=== PATIENT | female | born 1965 | race Hispanic/Latino ===

== ENCOUNTER 2021-11-03 09:02 | Day surgery (SDC) | payer BC ==
[~2021-11-03] VITALS: Ht 154.9 cm; Wt 74.1 kg
[~2021-11-03 09:02] MED LIST: LOW DOSE ASPIRI81 MG PO; METFORMIN HCL500 MG PO; METOPROLOL TAR100 MG PO
--- NOTE | 2021-11-03 11:22 | NUR ---
11/03/21 Augie2 Zofia Solis 1117-PATIENT ARRIVED TO PACU ON 2L NC RR EVEN. PATIENT LAYING LEFT LATERAL ABDOMEN SOFT. REACTIVE TO VERBAL STIMULI OPENING EYES SPEAKS MINIMAL KYRGYZ. IVF INFUSING. EASILY DOZES BACK TO SLEEP.
--- NOTE | 2021-11-04 06:23 | OR ---
[facility] [address] [place], [place] [address] Signed DATE OF OPERATION: 11/03/2021 SURGEON: Rigoberto Gonsalez MD PREOPERATIVE DIAGNOSIS: 1. Proximal esophageal dysphagia. 2. Halitosis. 3. Screening. POSTOPERATIVE DIAGNOSES: 1. Mild diffuse punctate hemorrhagic gastritis. 2. 4 mm polyp at 4 cm. 3. Minimal internal hemorrhoids. PROCEDURES: 1. Esophagogastroduodenoscopy with CLOtest and biopsy of the antrum. 2. Colonoscopy with hot biopsy. ESTIMATED BLOOD LOSS: None. INDICATIONS: Donna is a 55-year-old speaking female who came to the office with her . We also had our actuarial science professor in the room. Donna was asked to see me for her initial screening colonoscopy. She has no lower GI complaints. There is no family history of colon cancer or polyps. However, she is concerned about a sense of dysphagia or swelling in the back of her mouth. She talks about halitosis. In that regard her primary care provider also wanted her to have an upper endoscopy. If the upper endoscopy is negative, she should see an ear, nose, and throat surgeon to evaluate her tonsils and so forth. In the office, I gave them brochures on upper and lower endoscopy written in [place]. We went through them page by page. They understand the nature of the two tests. There is risk including, but not limited to gas bloating, crampy abdominal pain, bleeding, perforation requiring surgery, and missed diagnosis. We also reviewed the written instructions for the bowel prep written in [place]. She will hold her aspirin three days prior to the procedure. We also reviewed the need for IV conscious sedation. She had expressed understanding and wished to proceed. PROCEDURE IN DETAIL: Donna was taken into our endoscopy suite and placed in the supine semi-recumbent position. She was given a total of 8 mg of Versed and 150 mcg of fentanyl to cover both Electronically Signed By: RIGOBERTO GONSALEZ MD 11/04/21 0623 PATIENT NAME: DONNA HERRERA OPERATIVE REPORT DATE OF : 65 REPORT #: [id number] PHYSICIAN: RIGOBERTO GONSALEZ MD PCP: MAYCO WHITEHEAD REPORT IS CONFIDENTIAL AND NOT TO BE RELEASED WITHOUT AUTHORIZATION [facility] [address] [place], [place] [address] Signed cases. A bite block was utilized for the upper endoscopy. The adult gastroscope was introduced and advanced out into the third portion of the duodenum without difficulty. The duodenum and pyloric channel were unremarkable. The stomach showed mild diffuse punctate hemorrhagic inflammatory changes. We took a biopsy of the antrum for CLOtest as well as pathologic review. Upon retroflexion of scope, I could not appreciate a hiatal hernia. Scope was withdrawn up through the area of the GE junction, which was compliant without stricture. There was no gastric or esophageal varices. Very little if any disruption to the Z-line. No Silverman's mucosa. No distal esophagitis. The middle and upper esophagus were unremarkable. After this, the gas was suctioned out, the gastroscope removed. Donna tolerated the upper endoscopy quite well. Donna was then rotated into the left lateral decubitus position. She was maintained on IV sedation with the Versed and fentanyl. A digital rectal exam was performed. She has good sphincter tone. Not much in the way of any external hemorrhoids. The adult colonoscope was introduced and advanced all the way around into the cecum under direct visualization of camera without difficulty. It did take some extra sedation to keep Donna comfortable. Fortunately her prep was good. We could easily see the appendiceal orifice and ileocecal valve. The scope was then slowly withdrawn. We took pictures throughout for photodocumentation. There were no polyps in the colon. There was no diverticulosis. In the rectum she had just a tiny 4 mm polyp above the anal canal at about 4 cm. It was easily removed with the help of hot biopsy forceps. Upon retroflexion of scope we could see minimal circumferential internal hemorrhoid columns. After this, the gas was suctioned out. The colonoscope removed. Donna tolerated the lower endoscopy quite well. RECOMMENDATIONS: I will see Donna back in my office in 7 to 14 days to review her results. She might try an H2 mandeep or proton-pump inhibitor through her primary care provider to see if that improves her sense of dysphagia. If it does not, she would need to see an Ear, Nose, and Throat surgeon. Rigoberto Gonsalez MD ALB/MODL /[id number] Electronically Signed By: RIGOBERTO GONSALEZ MD 11/04/21 0623 PATIENT NAME: DONNA HERRERA OPERATIVE REPORT DATE OF : 65 REPORT #: [id number] PHYSICIAN: RIGOBERTO GONSALEZ MD PCP: MAYCO WHITEHEAD REPORT IS CONFIDENTIAL AND NOT TO BE RELEASED WITHOUT AUTHORIZATION [facility] [address] [place], [place] [address] Signed cc: OPAL Hill MD Copies: RIGOBERTO GONSALEZ MD ~ Electronically Signed By: RIGOBERTO GONSALEZ MD 11/04/21622 PATIENT NAME: DONNA HERRERA OPERATIVE REPORT DATE OF : 65 REPORT #: [id number] PHYSICIAN: RIGOBERTO GONSALEZ MD PCP: MAYCO WHITEHEAD REPORT IS CONFIDENTIAL AND NOT TO BE RELEASED WITHOUT AUTHORIZATION
--- NOTE | 2021-11-07 18:19 | PATH ---
[facility] [address] [place], [place] [address] Signed SPECIMEN(S): A ANTRUM BIOPSY SPECIMEN(S): B POLYP AT 4 CM SPECIMEN SOURCE: A. ANTRUM BIOPSY B. POLYP AT 4 CM CLINICAL HISTORY: Esophageal dysphagia FINAL PATHOLOGIC DIAGNOSIS: A. Stomach, antrum, biopsy: - No significant histopathologic alterations. B. Polyp, 4 cm, polypectomy: - Mucosal xanthoma. - No evidence of neoplasia. COMMENT: Regarding specimen A, the sections through the gastric biopsies show fragments of histologically unremarkable antral mucosa. There is no evidence of acute or chronic inflammation. There is no evidence of H. pylori, intestinal metaplasia, abnormal infiltrates or neoplasia. Regarding specimen B, mucosal xanthomas consist of collections of lipid filled macrophages in the lamina propria. They often also contain mucin. These are nonspecific markers of old injury. There is no evidence of acute or chronic inflammation at this time. There is no evidence of microscopic colitis. These lesions sometimes present endoscopically as small polyps. TWK:[id number]:C2NR MICROSCOPIC EXAMINATION: Histologic sections of all submitted blocks are examined by light microscopy. These findings, together with the gross examination, support the pathologic diagnosis. GROSS DESCRIPTION: Two specimens are received in two containers labeled with "MM". A. The specimen, labeled "MM, biopsy, antrum," is received in formalin and consists of one fragment of pink-arellano tissue (0.3 cm in greatest dimension). The specimen is submitted entirely in cassette PATIENT NAME: JAVIERDONNA PATHOLOGY DATE OF : 65 REPORT #: [id number] PHYSICIAN: CHRISTIANO RAMOS PCP: MAYCO WHITEHEAD REPORT IS CONFIDENTIAL AND NOT TO BE RELEASED WITHOUT AUTHORIZATION [facility] [address] [place], [place] [address] Signed A1. B. The specimen, labeled "MM, polyp at 4 cm," is received in formalin and consists of 2 fragments of pink-arellano tissue (0.2 cm in greatest dimension). The specimen is submitted entirely in cassette B1. AC (under the direct supervision of a pathologist) The Gross Description was prepared using a voice recognition system. The report was reviewed for accuracy; however, sound-alike word errors, addition and/or deletions may occur. If there is any question about this report, please contact Client Services. PERFORMING LABORATORY: The technical component was performed by [facility], [address] [place] [id number] (CLIA# [id number]). The professional interpretation was performed by [facility], [facility], [address] [place] [address] (CLIA#: [id number]). Diagnostician: Mark Johnsno MD Pathologist Electronically Signed 11/07/2021 Copies: ~ PATIENT NAME: DONNA HERRERA PATHOLOGY DATE OF : 65 REPORT #: [id number] PHYSICIAN: CHRISTIANO RAMOS PCP: MAYCO WHITEHEAD REPORT IS CONFIDENTIAL AND NOT TO BE RELEASED WITHOUT AUTHORIZATION
== END 2021-11-03 12:20 | disposition home or self-care (01) ==
LOC: OPS 09:02 → DS 10:30 → OPS 10:30
PROVIDERS: ATTEND Colon & Rectal Surgery
PROC: 0DB68ZX Excision of Stomach, Via Natural or Artificial Opening Endoscopic, Diagnostic (ICD-10-PCS; principal; 2021-11-03 10:30)
PROC: 0DBP8ZX Excision of Rectum, Via Natural or Artificial Opening Endoscopic, Diagnostic (ICD-10-PCS; 2021-11-03 10:30)
DX: Z12.11 Encounter for screening for malignant neoplasm of colon (principal); E75.5 Other lipid storage disorders; K29.71 Gastritis, unspecified, with bleeding; K64.8 Other hemorrhoids; E11.9 Type 2 diabetes mellitus without complications; E78.5 Hyperlipidemia, unspecified; E87.6 Hypokalemia; E66.9 Obesity, unspecified; Z90.49 Acquired absence of other specified parts of digestive tract; Z79.84 Long term (current) use of oral hypoglycemic drugs; I10 Essential (primary) hypertension
CPT/HCPCS: 87077; 99153; G0500; J2250; J3010; J7121